=== PATIENT | male | born 1975 | race Caucasian/White ===

== ENCOUNTER 2023-08-17 13:21 | Emergency (ER) | payer OTHER, SELFPAY ==
--- NOTE | ~2023-08-17 | XR_ITS ---
EXAMINATION: XR CHEST CLINICAL INFORMATION: Lightheadedness COMPARISON: None available. TECHNIQUE: 2 views of the chest were obtained. FINDINGS: No significant abnormality is noted involving the heart, lungs, mediastinum, bony thorax or soft tissues. XR/XR chest 2V IMPRESSION: Unremarkable examination.
--- NOTE | 2023-08-17 13:26 | ECG_ITS ---
Test Reason : LIGHTHEADED Blood Pressure : / mmHG Vent. Rate : 077 BPM Atrial Rate : 077 BPM P-R Int : 150 ms QRS Dur : 094 ms QT Int : 384 ms P-R-T Axes : 027 053 -08 degrees QTc Int : 434 ms Normal sinus rhythm Incomplete right bundle branch block Abnormal QRS-T angle, consider primary T wave abnormality Abnormal ECG No previous ECGs available Referred By: Tammy Riojas Electronically Signed By:SURAJ CHRIS MD
[2023-08-17 14:04] VITALS: BP 182/92; PULSE 69; RESP 16; TEMP 36.8; O2SAT 98; BMI 29.5
[2023-08-17 14:39] LABS: MANUAL DIFF FLAG NO
[2023-08-17 14:42] LABS: Basophils Absolute Auto 0.1 X10*3/uL (0.0-0.2); Basophils Percent Auto 1.1 % (0-2); Eosinophils Percent Auto 0.6 % (0-4); Hematocrit 44.9 % (42.0-52.0); Hemoglobin 15.4 g/dl (14.0-18.0); Imm Gran Abs Auto 0.02 X10*3/uL (0.00-0.03); Imm Gran Pct Auto 0.3 % (0.0-0.4); Lymphocytes Absolute Auto 1.3 X10*3/uL (1.2-4.9); Lymphocytes Percent Auto 20.3 % (20-40); Mean Corpuscular HGB Conc 34.3 g/dl (31.0-36.0); Mean Corpuscular Hemoglobin 30.5 pg (27.0-33.0); Mean Corpuscular Volume 88.9 fL (80.0-98.0); Mean Platelet Volume 9.1 fL (9.4-12.4); Monocytes Absolute Auto 0.5 X10*3/uL (0.1-1.2); Monocytes Percent Auto 7.5 % (2-11); Neutrophils Absolute Auto 4.5 x10*3/uL (2.0-8.3); Neutrophils Percent Auto 70.2 % (45-73); Platelet Count 206 X10*3/uL (160-400); Red Blood Count 5.05 X10*6/uL (4.60-5.80); Red Cell Distribution Width 12.5 % (11.0-16.0); White Blood Count 6.4 X10*3/uL (4.8-10.8)
[2023-08-17 14:47] LABS: INTERNATIONAL NORM RATIO 0.9 (0.9-1.1); Prothrombin Time 11.1 SEC (11.1-13.3)
[2023-08-17 14:55] LABS: Anion Gap 13 (12-20); Blood Urea Nitrogen 12 mg/dL (9-16); Carbon Dioxide 30 mmol/L (22-29); Chloride 102 mmol/L (96-108); Creatinine Clr Calc Pharmacy 94.4; Estimated Glomerular Filt Rate > 60; Glucose Random 117 mg/dL (60-115); Magnesium 1.8 mg/dL (1.6-2.6); Potassium 4.1 mmol/L (3.3-5.1); Sodium 141 mmol/L (135-145)
[2023-08-17 15:02] LABS: Troponin-I High Sensitivity < 2.7 ng/L (<3.5-35.0)
[2023-08-17 17:11] VITALS: BP 183/96; PULSE 79; RESP 18; TEMP 37.1; O2SAT 99
[2023-08-17 17:15] VITALS: BP 183/90; PULSE 71; RESP 16; O2SAT 99
--- NOTE | 2023-08-17 17:18 | PC.NURSE ---
a&ox4. vss and up to date aside from being hypertensive at this time. pt presents to ED w/ right sided upper extremity numbness/tingling. pt also verbalizing dizziness. denies headache/change in vision. no difficulties ambulating. cms intact. strength equal bilaterally. face symmetrtical. pt passed swallow eval w/o difficulty. no sob/wob noted respirations even and unlabored. family bedside. call [place] placed within reach.
--- NOTE | 2023-08-17 17:30 | ED.GENADULT ---
HPI - General Adult General Chief complaint: Dizziness Stated complaint: Lightheaded, tingling right arm Time Seen by Provider: 08/17/23 17:06 Source: patient, RN notes reviewed and old records reviewed Mode of arrival: ambulatory Limitations: no limitations History of Present Illness HPI narrative: 47-year-old male who denies any known past medical history presents for evaluation of tingling in his right arm with intermittent dizziness. His symptoms have been coming and going since yesterday. He occasionally has headaches but does not currently have a headache. Denies any visual changes He denies any chest pain. He does not take any medications He states his primary doctor has previously told him to consider starting medication for blood pressure and cholesterol but he has not done so yet The patient admits to drinking more alcohol than he believes he should Related Data Previous Rx's Medication Instructions Recorded lisinopril 5 mg tablet 5 mg PO DAILY #30 tabs 08/17/23 Allergies Allergy/AdvReac Type Severity Reaction Status Date / Time No Known Allergies Allergy Unverified 03/16/20 15:06 [No Known Allergies*] Review of Systems Constitutional: Constitutional: Denies body ache(s), Denies chills, Denies fever(s) and Reports headache(s) Eyes: Eyes: Denies blind spots, Denies blurry vision, Denies exophthalmos and Denies change in vision ENT: Reports headache(s) Cardiovascular: Cardiovascular: Denies painful fingertips, Denies chest pain and Denies dyspnea Respiratory: Respiratory: Denies cough and Denies dyspnea Gastrointestinal: Gastrointestinal: Denies abdominal pain, Denies nausea and Denies vomiting Musculoskeletal: Musculoskeletal: Denies back pain Integumentary/Breasts: Skin/Breast: Denies rash Neurologic: Reports headache(s) and Reports paresthesias (Right hand normally) [facility] Social History Social History Alcohol intake: current Alcohol intake frequency: 3 or more drinks per day Alcohol type: beer and hard liquor Use of substances other than those prescribed or required for medical reasons: No Advance Directives: No Advance Directives Information Provided: No Physical Exam ED Vital Signs: Vital Signs - 24 hr 08/17/23 14:04 08/17/23 17:11 08/17/23 17:15 Temperature 98.2 F 98.7 F Pulse Rate 69 79 71 Respiratory Rate 16 18 16 Blood Pressure 182/92 H 183/96 H 183/90 H Pulse Oximetry 98 99 99 Oxygen Delivery Method Room Air Room Air Room Air BMI result Body Mass Index 29.5 Const General: healthy appearing, comfortable, no acute distress, alert and awake Nutritional Appearance: well nourished Orientation/consciousness: patient oriented x3 HENMT Head: Yes normocephalic and Yes atraumatic Eyes Eyelids: Yes eyelids normal Conjunctivae: conjunctivae normal Sclerae: sclerae normal Corneas: corneas normal Pupils: Equal, round and reactive pupils present EOM: EOMs intact bilaterally Neck Neck: Yes full ROM Resp Effort & Inspection: normal respiratory effort, able to speak in complete sentences and not labored Cardio Rate: regular rate Rhythm: regular rhythm GI Inspection: No distended Palpation (GI): Soft to palpation, not firm, nontender, no guarding and not rigid Skin General skin exam: no rashes or lesions noted and elasticity normal Neuro General: patient oriented x3 Cranial nerves: Yes CN's II-XII intact bilaterally, Yes Equal, round and reactive pupils present and Yes Bilaterally intact EOM present Cognition (Neuro): normal cognition Extrem Other: Moving all extremities well without any obvious deformities Medical Decision Making Medical Decision Making [facility] Narrative: 47-year-old male presents for evaluation of multiple vague complaints. He complains of mostly tingling in his right arm with intermittent dizziness. Currently he is asymptomatic. He never had any chest pain, shoulder pain, neck pain. Taking any medications. He does admit to increased alcohol consumption. His labs have any significant abnormalities. His CO2 is just above normal at 30, glucose is 117 but this was not a fasting glucose. No coagulation abnormalities, no significant hematologic abnormalities. EKG with incomplete right bundle-branch block with no evidence of acute ischemia and troponin is negative. Sit not favored to be cardiac in nature. The patient's blood pressure was elevated to 183/90 during my evaluation. The patient is advised to cut back on his alcohol consumption and start taking lisinopril to control his blood pressure. He will follow-up with his PCP for cholesterol control Differential Diagnosis Differential Diagnoses: The differential diagnosis associated with the presentation includes Hypertension Uncontrolled hypertension Paresthesias ACS less likely Neuropathy Admission/Observation Consideration of admission/observation: Escalation of care including admission/observation considered Dot for ACS symptoms not required med Lab Data [facility] Lab Attestation statement: I reviewed the patient's lab results. Please see above 08/17/23 14:35 08/17/23 14:35 Labs: Lab Results 08/17/23 Range/Units 14:35 WBC 6.4 (4.8-10.8) X10*3/uL RBC 5.05 (4.60-5.80) X10*6/uL Hgb 15.4 (14.0-18.0) g/dl Hct 44.9 (42.0-52.0) % MCV 88.9 (80.0-98.0) fL MCH 30.5 (27.0-33.0) pg MCHC 34.3 (31.0-36.0) g/dl RDW 12.5 (11.0-16.0) % Plt Count 206 (160-400) X10*3/uL MPV 9.1 L (9.4-12.4) fL Immature Gran % (Auto) 0.3 (0.0-0.4) % Neut % (Auto) 70.2 (45-73) % Lymph % (Auto) 20.3 (20-40) % Collier % (Auto) 7.5 (2-11) % Eos % (Auto) 0.6 (0-4) % Baso % (Auto) 1.1 (0-2) % Lymph # (Auto) 1.3 (1.2-4.9) X10*3/uL Collier # (Auto) 0.5 (0.1-1.2) X10*3/uL Eos # (Auto) 0.0 (0.0-0.4) X10*3/uL Baso # (Auto) 0.1 (0.0-0.2) X10*3/uL Abs Immat Gran (auto) 0.02 (0.00-0.03) X10*3/uL Absolute Neuts (auto) 4.5 (2.0-8.3) x10*3/uL Absolute Nucleated RBC 0.000 (0.0-0.012) X10*3/uL Nucleated RBC % (auto) 0.0 (0.0-0.2) /100WBC PT 11.1 (11.1-13.3) SEC INR 0.9 (0.9-1.1) Sodium 141 (135-145) mmol/L Potassium 4.1 (3.3-5.1) mmol/L Chloride 102 (96-108) mmol/L Carbon Dioxide 30 H (22-29) mmol/L Anion Gap 13 (12-20) BUN 12 (9-16) mg/dL Creatinine 1.02 (0.5-1.4) mg/dL Estim Creat Clear Calc 94.4 Estimated GFR > 60 Random Glucose 117 H (60-115) mg/dL Calcium 10.0 (8.4-10.2) mg/dL Magnesium 1.8 (1.6-2.6) mg/dL Troponin I High Sens < 2.7 (<3.5-35.0) ng/L Independent Interpretation I performed an independent interpretation of an: EKG (Normal sinus rhythm with a rate of 77 beats minute. Incomplete right bundle-branch block. No ST segment elevations or depressions.) and Plain X-Ray (No acute disease in the chest) Radiology Impression Discussion of test interpretation with radiology: I have reviewed the radiologist's reading. (Unremarkable examination) Discharge Plan Discharge Clinical Impression: Hypertension Patient Disposition: Home, Self-Care Instructions: Lisinopril (By mouth), Chronic Hypertension (ED) Additional Instructions: Your blood pressure was elevated today and for this reason recommend starting lisinopril 5 mg daily The rest of your workup was reassuring Call your primary doctor as soon as possible to schedule follow Return for new or worsening symptoms I do recommend that you cut back on the alcohol use Prescriptions: New lisinopril 5 mg tablet 5 mg PO DAILY Qty: 30 0RF
== END 2023-08-17 18:12 | disposition home or self-care (01) ==
LOC: HO.ED 17:57
PROVIDERS: Physician Assistant Medical; Emergency Provider Student in an Organized Health Care Education/Training Program; PCP Internal Medicine
DX: R51.9 Headache, unspecified (principal); R42 Dizziness and giddiness; I45.10 Unspecified right bundle-branch block; R20.2 Paresthesia of skin; I10 Essential (primary) hypertension; Z79.899 Other long term (current) drug therapy
CPT/HCPCS: 36415; 71046; 80048; 83735; 84484; 85025; 85610; 93005; 99283; 99285

== ENCOUNTER → 2023-08-17 13:26 | Outpatient (BNV) | payer OTHER, SELFPAY | PROVIDERS: Emergency Provider Student in an Organized Health Care Education/Training Program; PCP Internal Medicine; Visit Provider Internal Medicine Cardiovascular Disease | DX: R94.31 Abnormal electrocardiogram [ECG] [EKG] (principal) | CPT/HCPCS: 93010 ==